=== PATIENT | male | born 1955 | race American Indian/Alaskan Native ===

== ENCOUNTER 2021-07-26 15:01 | Outpatient (CLI) | payer MEDICARE ==
[2021-07-26 15:29] LABS: Bilirubin,Urine NEG (Negative); Blood,Urine NEG (Negative); Color,Urine Yellow (Yellow); Mucus,Urine FEW /HPF; Protein,Urine <15 mg/dL mg/dL (Negative); Urobilinogen,Urine < 2.0 mg/dL (<2.0)
[2021-07-26 15:50] LABS: Albumin 4.4 g/dL (3.9-5); BUN/Creatinine Ratio 17; Blood Urea Nitrogen 20 mg/dL (9-20); Calcium 9.5 mg/dL (8.4-10.2); Hemolysis Index 9
[2021-07-26 16:08] LABS: WBC,Urine < 1.0 /HPF (0.0-6.0)
[2021-07-26 16:29] LABS: Creatinine,Urine 163.7 mg/dL (0.1-20.0); Protein/Creatinine Ratio,Urine 0.05
[2021-07-30 13:36] LABS: Vitamin D, 25-OH, D2 31 ng/mL
== END 2021-07-26 15:02 | disposition home or self-care (01) ==
LOC: LAB 15:01
PROVIDERS: ATTEND Internal Medicine Nephrology
DX: R35.1 Nocturia (principal); R94.4 Abnormal results of kidney function studies; E55.9 Vitamin D deficiency, unspecified; Z79.1 Long term (current) use of non-steroidal anti-inflammatories (NSAID)
CPT/HCPCS: 36415; 80048; 81001; 82040; 82306; 82570; 84100; 84156